=== PATIENT | female | born 1975 | race Caucasian/White ===

== ENCOUNTER 2020-12-09 15:49 | Emergency (ER) | payer OTHER ==
[2020-12-09] MEDS ORDERED: Sodium Chloride 0.9% 10 ML Syringe FLUSH PRN (16:55)
[2020-12-09] MEDS ORDERED: Sodium Chloride 0.9% 1,000 ML IV STA ×2 (16:55→19:06)
[2020-12-09] MEDS ORDERED: HYDROmorphone 0.5 MG/0.5 ML Syringe IVPUSH ONE ×2 (17:01→19:06)
[2020-12-09] MEDS ORDERED: Iopamidol 612 MG/ML 100 ML Bottle IVPUSH ONE (17:20)
[2020-12-09] MEDS ORDERED: Iopamidol 612 MG/ML 50 ML SDV IVPUSH ONE (17:20)
[2020-12-09] MEDS ORDERED: Ondansetron 4 MG/2 ML SDV IVPUSH ONE (19:06)
[2020-12-09] MEDS ORDERED: Dicyclomine 10 MG Cap PO ONE (19:07)
--- NOTE | 2020-12-09 19:10 | EDM.PDOC ---
ED HPI GENERAL MEDICAL PROBLEM - General Chief Complaint: General Stated Complaint: BODY ACHES/BLACK STOOL Time Seen by Provider: 12/09/20 16:44 Source of Information: Reports: Patient, RN Notes Reviewed History Limitations: Reports: No Limitations - History of Present Illness INITIAL COMMENTS - FREE TEXT/NARRATIVE: Patient is a 45-year-old female presenting to the emergency department with complaints of nausea, vomiting, body aches, chills, abdominal cramping, and rib pain which she attributes to her violent vomiting. Reports symptoms began last evening . She described her emesis is dark in color but not coffee-ground. No visible blood in her emesis. She reports having "black" stools, but states that they are formed not runny. Complains of right lower quadrant abdominal pain and intermittent cramping. She took Zofran at home and states that her nausea is better at this time. Reports she does still have her gallbladder and appendix. She has not had documented fever. Denies chest pain or shortness of breath. She has not been vaccinated for Covid. Right Abdomen Pain Score (Numeric/FACES): 4 - Related Data Allergies Allergy/AdvReac Type Severity Reaction Status Date / Time latex Allergy Rash Verified 12/09/20 16:21 orphenadrine [From Norflex] Allergy Hives Verified 12/09/20 16:21 aripiprazole [From Abilify] AdvReac Vomiting Verified 12/10/20 12:34 buspirone [From BuSpar] AdvReac Vomiting Verified 12/10/20 12:34 prochlorperazine AdvReac Muscle Verified 12/10/20 12:34 [From Compazine] Aches Home Meds: Home Meds Aspirin [Halfprin] 81 mg PO DAILY 12/09/20 [History] Cholecalciferol (Vitamin D3) [Vitamin D3] 5,000 intnl unit PO DAILY 12/09/20 [History] Cyclobenzaprine [Flexeril] 10 mg PO Q8H PRN 12/09/20 [History] Dicyclomine [Bentyl] 20 mg PO Q8H PRN #9 tab 12/09/20 [Rx] LORazepam [Ativan] 0.5 mg PO BID 12/09/20 [History] Levothyroxine 200 mcg PO DAILY 12/09/20 [History] Magnesium Oxide [Magnesium] 500 mg PO BID 12/09/20 [History] Meclizine HCl [Antivert] 100 - 150 mg PO DAILY 12/09/20 [History] QUEtiapine Fumarate [Seroquel] 50 mg PO BEDTIME PRN 12/09/20 [History] Sertraline HCl [Zoloft] 200 mg PO DAILY 12/09/20 [History] hydroCHLOROthiazide [Hydrochlorothiazide] 12.5 mg PO DAILY 12/09/20 [History] metFORMIN [Glucophage XR] 500 mg PO BID 12/09/20 [History] traZODone 50 mg PO BEDTIME PRN 12/09/20 [History] Past Medical History HEENT History: Reports: Cataract, Impaired Vision Other HEENT History: reading eyeglasses. Respiratory History: Reports: Pneumonia, Recurrent, Other (See Below) Other Respiratory History: pleurisy. 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 Hematoma to T8. Neurological History: Reports: CVA, Headaches, Chronic, Migraines, Other (See Below) Other Neuro History: 3 R) sided cerebellar strokes. Psychiatric History: Reports: Anxiety, Depression Endocrine/Metabolic History: Reports: Hypothyroidism, Other (See Below) Other Endocrine/Metabolic History: So's thyroiditis. On Metformin for wt loss. Hematologic History: Reports: Anemia - Infectious Disease History Infectious Disease History: Reports: Chicken Pox, Measles, Mumps, Other (See Below) Other Infectious Disease History: +) titers for MMR - Past Surgical History HEENT Surgical History: Reports: Cataract Surgery, Tonsillectomy Female Surgical History: Reports: Hysterectomy, Other (See Below) Other Female Surgeries/Procedures: partial hyst. Musculoskeletal Surgical History: Reports: Other (See Below) Other Musculoskeletal Surgeries/Procedures:: lateral release on R) patella, L) foot bunionectomy. Social & Family History - Tobacco Use Tobacco Use Status *Q: Current Some Day Tobacco User Years of Tobacco use: 37 Packs/Tins Daily: 0.1 - Caffeine Use Caffeine Use: Reports: Coffee, Soda - Recreational Drug Use Recreational Drug Use: No ED ROS GENERAL - Review of Systems Review Of Systems: Comprehensive ROS is negative, except as noted in HPI. ED EXAM, GENERAL - Physical Exam Exam: See Below Exam Limited By: No Limitations General Appearance: Alert, WD/WN, No Apparent Distress Respiratory/Chest: No Respiratory Distress, Lungs Clear, Normal Breath Sounds, No Accessory Muscle Use, Chest Non-Tender Cardiovascular: Normal Peripheral Pulses, Regular Rate, Rhythm, No Edema, No Gallop, No JVD, No Murmur, No Rub GI/Abdominal: Normal Bowel Sounds, Soft, No Organomegaly, No Distention, No Abnormal Bruit, No Mass, Tender (mild generalized tenderness throughout) Rectal (Female) Exam: Normal Exam, Normal Rectal Tone, Heme - Stool Neurological: Alert, Oriented, CN II-XII Intact, Normal Cognition, Normal Gait, Normal Reflexes, No Motor/Sensory Deficits Psychiatric: Normal Affect, Normal Mood Skin Exam: Warm, Dry, Intact, Normal Color, No Rash Course - Vital Signs Last Recorded V/S: Last Vital Signs Temp 98.0 F 12/09/20 16:10 Pulse 84 12/09/20 21:10 Resp 18 12/09/20 21:10 BP 106/60 12/09/20 21:10 Pulse Ox 98 12/09/20 21:10 - Orders/Labs/Meds Labs: Laboratory Tests 12/09/20 12/09/20 12/09/20 Range/Units 17:15 17:15 17:15 WBC 11.50 H (3.98-10.04) K/mm3 RBC 4.96 (3.98-5.22) M/mm3 Hgb 14.5 (11.2-15.7) gm/dl Hct 44.7 (34.1-44.9) % MCV 90.1 (79.4-94.8) fl MCH 29.2 (25.6-32.2) pg MCHC 32.4 (32.2-35.5) g/dl RDW Std Deviation 46.1 (36.4-46.3) fL Plt Count 394 H (182-369) K/mm3 MPV 9.7 (9.4-12.3) fl Neut % (Auto) 90.6 H (34.0-71.1) % Lymph % (Auto) 4.8 L (19.3-51.7) % [place] % (Auto) 4.0 L (4.7-12.5) % Eos % (Auto) 0.3 L (0.7-5.8) Baso % (Auto) 0.2 (0.1-1.2) % Neut # (Auto) 10.43 H (1.56-6.13) K/mm3 Lymph # (Auto) 0.55 L (1.18-3.74) K/mm3 [place] # (Auto) 0.46 H (0.24-0.36) K/mm3 Eos # (Auto) 0.03 L (0.04-0.36) K/mm3 Baso # (Auto) 0.02 (0.01-0.08) K/mm3 Manual Slide Review Abnormal smear Sodium 142 (136-145) mEq/L Potassium 3.9 (3.5-5.1) mEq/L Chloride 104 (98-107) mEq/L Carbon Dioxide 29 (21-32) mEq/L Anion Gap 12.9 (5-15) BUN 20 H (7-18) mg/dL Creatinine 1.0 (0.55-1.02) mg/dL Est Cr Clr Drug Dosing 68.36 mL/min Estimated GFR (MDRD) 60 (>60) mL/min BUN/Creatinine Ratio 20.0 H (14-18) Glucose 117 H (70-99) mg/dL Calcium 8.4 L (8.5-10.1) mg/dL Total Bilirubin 0.5 (0.2-1.0) mg/dL AST 14 L (15-37) U/L ALT 19 (14-59) U/L Alkaline Phosphatase 73 (46-116) U/L C-Reactive Protein 1.2 H* (<1.0) mg/dL Total Protein 7.4 (6.4-8.2) g/dl Albumin 3.6 (3.4-5.0) g/dl Globulin 3.8 gm/dL Albumin/Globulin Ratio 1.0 (1-2) Lipase 71 L (73-393) U/L HCG, Qual Negative (NEGATIVE) Urine Color (Yellow) Urine Appearance (Clear) Urine pH (5.0-8.0) Ur Specific [place] (1.005-1.030) Urine Protein (Negative) Urine Glucose (UA) (Negative) Urine Ketones (Negative) Urine Occult Blood (Negative) Urine Nitrite (Negative) Urine Bilirubin (Negative) Urine Urobilinogen (0.2-1.0) Ur Leukocyte Esterase (Negative) Urine RBC (0-5) /hpf Urine WBC (0-5) /hpf Ur Squamous Epith Cells (0-5) /hpf Urine Bacteria (FEW) /hpf Urine Mucus (FEW) /hpf SARS-CoV-2 RNA (RAVINDRA) (NEGATIVE) 12/09/20 12/09/20 Range/Units 17:40 20:34 WBC (3.98-10.04) K/mm3 RBC (3.98-5.22) M/mm3 Hgb (11.2-15.7) gm/dl Hct (34.1-44.9) % MCV (79.4-94.8) fl MCH (25.6-32.2) pg MCHC (32.2-35.5) g/dl RDW Std Deviation (36.4-46.3) fL Plt Count (182-369) K/mm3 MPV (9.4-12.3) fl Neut % (Auto) (34.0-71.1) % Lymph % (Auto) (19.3-51.7) % [place] % (Auto) (4.7-12.5) % Eos % (Auto) (0.7-5.8) Baso % (Auto) (0.1-1.2) % Neut # (Auto) (1.56-6.13) K/mm3 Lymph # (Auto) (1.18-3.74) K/mm3 [place] # (Auto) (0.24-0.36) K/mm3 Eos # (Auto) (0.04-0.36) K/mm3 Baso # (Auto) (0.01-0.08) K/mm3 Manual Slide Review Sodium (136-145) mEq/L Potassium (3.5-5.1) mEq/L Chloride (98-107) mEq/L Carbon Dioxide (21-32) mEq/L Anion Gap (5-15) BUN (7-18) mg/dL Creatinine (0.55-1.02) mg/dL Est Cr Clr Drug Dosing mL/min Estimated GFR (MDRD) (>60) mL/min BUN/Creatinine Ratio (14-18) Glucose (70-99) mg/dL Calcium (8.5-10.1) mg/dL Total Bilirubin (0.2-1.0) mg/dL AST (15-37) U/L ALT (14-59) U/L Alkaline Phosphatase (46-116) U/L C-Reactive Protein (<1.0) mg/dL Total Protein (6.4-8.2) g/dl Albumin (3.4-5.0) g/dl Globulin gm/dL Albumin/Globulin Ratio (1-2) Lipase (73-393) U/L HCG, Qual (NEGATIVE) Urine Color Yellow (Yellow) Urine Appearance Clear (Clear) Urine pH 6.5 (5.0-8.0) Ur Specific [place] 1.015 (1.005-1.030) Urine Protein Negative (Negative) Urine Glucose (UA) Negative (Negative) Urine Ketones Negative (Negative) Urine Occult Blood Negative (Negative) Urine Nitrite Negative (Negative) Urine Bilirubin Negative (Negative) Urine Urobilinogen 0.2 (0.2-1.0) Ur Leukocyte Esterase Negative (Negative) Urine RBC 0-5 (0-5) /hpf Urine WBC 0-5 (0-5) /hpf Ur Squamous Epith Cells 0-5 (0-5) /hpf Urine Bacteria Occasional (FEW) /hpf Urine Mucus Not seen (FEW) /hpf SARS-CoV-2 RNA (RAVINDRA) Negative (NEGATIVE) Meds: Medications Discontinued Medications Generic Name Dose Route Start Last Admin Trade Name Freq PRN Reason Stop Dose Admin Dicyclomine HCl 20 mg 12/09/20 19:07 12/09/20 19:22 Dicyclomine 10 Mg Cap PO 12/09/20 19:08 20 mg ONETIME ONE Administration Hydromorphone HCl 0.25 mg 12/09/20 17:01 12/09/20 17:19 Hydromorphone 0.5 Mg/0.5 Ml Syringe IVPUSH 12/09/20 17:02 0.25 mg ONETIME ONE Administration Hydromorphone HCl 0.25 mg 12/09/20 19:06 12/09/20 19:22 Hydromorphone 0.5 Mg/0.5 Ml Syringe IVPUSH 12/09/20 19:07 0.25 mg ONETIME ONE Administration Sodium Chloride 1,000 mls @ 999 mls/hr 12/09/20 16:55 12/09/20 17:21 Normal Saline IV 12/09/20 17:55 999 mls/hr NOW STA Administration Sodium Chloride 1,000 mls @ 999 mls/hr 12/09/20 19:06 12/09/20 19:22 Normal Saline IV 12/09/20 20:06 999 mls/hr NOW STA Administration Iopamidol 100 ml 12/09/20 17:20 12/09/20 18:08 Iopamidol 612 Mg/Ml 100 Ml Bottle IVPUSH 12/09/20 17:21 100 ml ONETIME ONE Administration Iopamidol 25 ml 12/09/20 17:20 12/09/20 18:08 Iopamidol 612 Mg/Ml 50 Ml Sdv IVPUSH 12/09/20 17:21 25 ml ONETIME ONE Administration Ondansetron HCl 4 mg 12/09/20 19:06 12/09/20 19:22 Ondansetron 4 Mg/2 Ml Sdv IVPUSH 12/09/20 19:07 4 mg ONETIME ONE Administration Sodium Chloride 10 ml 12/09/20 16:55 12/09/20 17:16 Sodium Chloride 0.9% 10 Ml Syringe FLUSH 10 ml ASDIRECTED PRN Administration Keep Vein Open - Re-Assessments/Exams Free Text/Narrative Re-Assessment/Exam: Patient is a 45-year-old female presenting to the emergency department with complaints of vomiting, black stool, abdominal cramping, headache, and rib pain which she attributes to vomiting. On exam, she has right lower quadrant abdominal tenderness as well as some mild periumbilical tenderness. Exam is otherwise unremarkable. I have ordered blood work, urine, hCG, CT scan of the abdomen pelvis with IV contrast only as the patient refused oral. She reports that she is very sensitive to Dilaudid, therefore I will give 0.25 mg IV as well as a liter of IV fluids. She took Zofran around 1 PM today and states that her nausea is fairly well controlled at this time. 12/09/20 19:12 Hematology significant for WBC slightly elevated 11.5, BUN 20, CRP 1.2. Covid is negative, hCG is negative. Rectal exam was completed for stool sample. Found to be Hemoccult negative. Patient has not been able to produce a urine sample thus far. States she feels a little better after the medications given but still has headache abdominal cramping. I ordered a second liter of IV fluids bolus, Zofran, Dilaudid, and Bentyl. 12/09/20 21:03 Urinalysis is normal. Patient is feeling better and ready go home and rest. I will send prescription for Bentyl that she may use as needed. She has Zofran at home. Discharge instructions as documented. Departure - Departure Time of Disposition: 21:04 Disposition: Home, Self-Care 01 Condition: Good Clinical Impression: Gastroenteritis - Discharge Information *PRESCRIPTION DRUG MONITORING PROGRAM REVIEWED*: No *COPY OF PRESCRIPTION DRUG MONITORING REPORT IN PATIENT JENNIE: No Prescriptions: Dicyclomine [Bentyl] 20 mg PO Q8H PRN #9 tab PRN Reason: Abdominal Pain Instructions: Viral Gastroenteritis, Adult, [id number] Referrals: PCP,Not In Area [Primary Care Provider] - Forms: ED Department Discharge Additional Instructions: You were seen in the emergency department today for abdominal pain, vomiting, headache and dark stools. Work-up included blood work, urinalysis, Covid test, and CT scan of abdomen pelvis. CT scan showed evidence of enteritis. Blood work was otherwise normal. You are likely suffering from gastroenteritis. While in the ER, you received IV fluids, pain medications, and nausea medications. Recommend that you go home and rest. I would recommend clear liquid diet for the next 24 to 72 hours then slowly advance as tolerated. Continue Zofran as needed. I have sent prescription for Bentyl as needed for abdominal cramping. If you should experience any new or worsening symptoms, please not hesitate to return to the emergency department for reevaluation. Sepsis Event Note (ED) - Evaluation Sepsis Screening Result: No Definite Risk
--- NOTE | 2020-12-10 07:43 | CT ---
CT abdomen and pelvis Technique: Multiple axial sections were obtained from above the dome of the diaphragm inferiorly through the pubic symphysis. Intravenous contrast was utilized. No oral contrast has been given. Delayed images were also obtained through the bladder. Reconstructed coronal and sagittal images were obtained. Comparison: No prior abdominal imaging is available. Findings: Visualized lung bases show nothing acute. Liver contains no focal abnormality. Gallbladder contains no calcified gallstones. Spleen size is normal. Spleen is slightly lobulated compatible with accessory splenic tissue. Adrenal glands show no nodule. Kidneys show symmetric contrast enhancement with no hydronephrosis or mass being seen. Pancreas appears within normal limits. Aorta shows no aneurysm. No retroperitoneal adenopathy or mesenteric abnormalities are seen. No pelvic mass or adenopathy is seen. Small 2.1 cm cyst is noted within the left ovary which is most likely incidental. Prior hysterectomy is noted. Delayed images show contrast within the bladder. Appendix is not visualized with certainty. Mild amount of fluid is seen within the small bowel which, in my opinion, is felt to be within normal limits. No discrete dilatation is seen of the bowel at this time. No free fluid or inflammatory change is seen. Bone window settings were reviewed which show mild scattered degenerative change throughout the spine. No acute osseous finding is seen. Impression: 1. Findings believed to be incidental as described above. No definite acute abnormality is appreciated. Diagnostic code #2 I agree with preliminary report from [facility], finalized on 12/09/20, 8:01 PM CDT, code 1
== END 2020-12-09 21:27 | disposition home or self-care (01) ==
LOC: JD.ED 15:49
DX: K52.9 Noninfective gastroenteritis and colitis, unspecified (principal); Z91.040 Latex allergy status; Z88.8 Allergy status to other drugs, medicaments and biological substances; Z79.82 Long term (current) use of aspirin; Z79.899 Other long term (current) drug therapy; Z86.73 Personal history of transient ischemic attack (TIA), and cerebral infarction without residual deficits; Z72.0 Tobacco use
CPT/HCPCS: 36415; 74177; 80053; 81001; 83690; 84703; 85025; 86140; 87635; 96374; 96375; 96376; 99284; A9270; J1170; J2405; J7030; Q9967; U0002

== ENCOUNTER 2022-05-09 13:29 | Emergency (ER) | payer OTHER ==
[2022-05-09] MEDS ORDERED: Sodium Chloride 0.9% 10 ML Syringe FLUSH PRN (13:57)
[2022-05-09] MEDS ORDERED: Iopamidol 755 Mg/ML 100 ML Bottle IVPUSH ONE (14:27)
[2022-05-09] MEDS ORDERED: Sodium Chloride 0.9% 10 ML Syringe FLUSH ONE (14:30)
[2022-05-09 14:39] LABS: ESTIMATED GFR 62 mL/min (>60)
[2022-05-09] MEDS ORDERED: Ondansetron 4 MG/2 ML SDV IVPUSH ONE (14:45)
== END 2022-05-09 16:40 | disposition home or self-care (01) ==
LOC: JD.ED 13:29
DX: R07.89 Other chest pain (principal); E03.9 Hypothyroidism, unspecified; Z91.040 Latex allergy status; Z88.8 Allergy status to other drugs, medicaments and biological substances; Z79.82 Long term (current) use of aspirin; Z79.899 Other long term (current) drug therapy
CPT/HCPCS: 36415; 71275; 80053; 84484; 85025; 85610; 86140; 93005; 96374; 99285; J2405; J3490; Q9967; 93010; 99284